=== PATIENT | female | born 1960 | race Two or more races ===

== ENCOUNTER 2021-02-22 09:14 | Emergency (ER) | payer MEDICAID, OTHER ==
[~2021-02-22] VITALS: Ht 172.7 cm; Wt 68.0 kg
[2021-02-22] MEDS ORDERED: cloNIDine HCL 0.1 MG TAB ONE (11:54)
[2021-02-22] MEDS ORDERED: cloNIDine HCL 0.1 MG TAB PO ONE (12:00)
[2021-02-22] MEDS ORDERED: HYDROcodone-ACET 5/325MG TAB PO ONE (12:30)
[2021-02-22] MEDS ORDERED: hydrALAZINE HCL 10 MG TAB PO ONE (13:00)
[2021-02-22 14:02] VITALS: BP 151/80
== END 2021-02-22 14:14 | disposition home or self-care (01) ==
LOC: EDBD 09:14 → ER 09:14
DX: M79.10 Myalgia, unspecified site (principal); R07.89 Other chest pain; R51.9 Headache, unspecified; M25.511 Pain in right shoulder; R07.81 Pleurodynia; I10 Essential (primary) hypertension; E11.9 Type 2 diabetes mellitus without complications; I48.91 Unspecified atrial fibrillation; Z90.49 Acquired absence of other specified parts of digestive tract; V89.2XXA Person injured in unspecified motor-vehicle accident, traffic, initial encounter; Y93.89 Activity, other specified; Y92.410 Unspecified street and highway as the place of occurrence of the external cause; Y99.8 Other external cause status
CPT/HCPCS: 71046; 73030; 93005